=== PATIENT | female | born 1990 | race Caucasian/White ===

== ENCOUNTER → 2016-06-25 | Outpatient (CLI) | payer OTHER ==
[~2016-06-25] MED LIST: ALEVE220 MG PO; AMOXICILLIN500 MG PO; BACTRIM DS 8001 TA1 PO; BIRTH CONTROL1 EAC1 PO; CYCLOBENZAPRINE10 MG PO; KEFLEX500 MG PO; MEDROL DOSEPAK4 MG PO; MOTRIN800 MG PO; NAPROSYN500 MG PO; NEXIUM40 MG PO; NKHM; PREDNICOT20 MG PO; VICODIN 5/500 505 MG PO; ZITHROMAX Z PA250 MG PO
== END | disposition home or self-care (01) ==
LOC: RESCLI 02:57
DX: M25.561 Pain in right knee (principal); K21.9 Gastro-esophageal reflux disease without esophagitis

== ENCOUNTER → 2016-09-17 | Outpatient (CLI) | payer BC | END | disposition home or self-care (01) | LOC: RESCLI 02:48 | DX: K21.9 Gastro-esophageal reflux disease without esophagitis (principal); E66.9 Obesity, unspecified; M25.561 Pain in right knee ==

== ENCOUNTER → 2016-09-24 | Outpatient (CLI) | payer BC | END | disposition home or self-care (01) | LOC: RESCLI 08:43 | DX: M54.41 Lumbago with sciatica, right side (principal); E66.9 Obesity, unspecified; K21.9 Gastro-esophageal reflux disease without esophagitis; Z90.49 Acquired absence of other specified parts of digestive tract ==

== ENCOUNTER → 2016-10-23 | Outpatient (CLI) | payer BC | END | disposition home or self-care (01) | LOC: MRI 00:27 | DX: M54.5 Low back pain (principal) ==

== ENCOUNTER → 2017-03-27 | Outpatient (CLI) | payer OTHER ==
[2017-03-27 08:05] LABS: BASO % 0.4 % (0.0-1.0); EOS # 0.1 10*3/uL (0.0-0.4); EOS % 1.3 % (1.0-4.0); HEMATOCRIT 34.1 % (37.0-47.0); LYMPH # 2.4 10*3/uL (1.3-4.4); LYMPH % 33.6 % (27.0-41.0); MEAN CELL VOLUME 85.5 fl (81.0-99.0); MEAN CORPUSCULAR HGB 27.6 pg (27.0-31.0); MEAN CORPUSCULAR HGB CONC 32.3 g/dl (33.0-37.0); MEAN PLATELET VOLUME 9.2 fl (9.6-12.3); MONO # 0.4 10*3/uL (0.1-1.0); MONO % 5.2 % (3.0-9.0); NEUT # 4.2 10*3/uL (2.3-7.9); NEUT % 59.1 % (47.0-73.0); PLATELET COUNT AUTOMATED 336 10*3/uL (130-400); RED BLOOD COUNT 3.99 10*6/uL (4.10-5.10); RED CELL DISTRI WIDTH 13.5 % (0-14.5); WHITE BLOOD COUNT 7.1 10*3/uL (4.8-10.8)
[2017-03-27 08:33] LABS: BUN 14 mg/dl (7-24); CHLORIDE 104 mmol/L (98-107); CHOLESTEROL 192 mg/dL (<200); CREATININE 0.72 mg/dL (0.55-1.02); HDL CHOLESTEROL 64 mg/dl (40-60); LDL CHOLESTEROL 106 mg/dL (9-159); POTASSIUM 4.1 mmol/L (3.5-5.1); SODIUM 137 mmol/L (136-145); TRIGLYCERIDES 110 mg/dl (<150); VLDL CHOLESTEROL 22 mg/dL (6-40)
== END | disposition home or self-care (01) ==
LOC: LAB 00:43
PROVIDERS: Internal Medicine
DX: Z00.01 Encounter for general adult medical examination with abnormal findings (principal); E78.00 Pure hypercholesterolemia, unspecified; R73.09 Other abnormal glucose

== ENCOUNTER → 2017-04-28 | Outpatient (CLI) | payer OTHER | END | disposition home or self-care (01) | LOC: RESCLI 01:56 | DX: K21.9 Gastro-esophageal reflux disease without esophagitis (principal); E66.9 Obesity, unspecified; R73.03 Prediabetes; M51.26 Other intervertebral disc displacement, lumbar region ==

== ENCOUNTER → 2017-07-22 | Outpatient (CLI) | payer OTHER | END | disposition home or self-care (01) | LOC: RESCLI 04:43 | DX: K21.9 Gastro-esophageal reflux disease without esophagitis (principal); E66.9 Obesity, unspecified; R73.03 Prediabetes; M51.26 Other intervertebral disc displacement, lumbar region; M54.2 Cervicalgia ==

== ENCOUNTER → 2021-08-10 | Outpatient (CLI) | payer OTHER ==
[2021-08-10 09:27] LABS: BASO # 0.1 10*3/uL (0.0-0.1); BASO % 0.7 % (0.0-1.0); EOS # 0.3 10*3/uL (0.0-0.4); EOS % 3.7 % (1.0-4.0); HEMATOCRIT 32.9 % (37.0-47.0); LYMPH # 1.8 10*3/uL (1.3-4.4); LYMPH % 25.7 % (27.0-41.0); MEAN CELL VOLUME 72.9 fl (81.0-99.0); MEAN CORPUSCULAR HGB 22.2 pg (27.0-31.0); MEAN CORPUSCULAR HGB CONC 30.4 g/dl (33.0-37.0); MEAN PLATELET VOLUME 8.6 fl (9.6-12.3); MONO # 0.4 10*3/uL (0.1-1.0); MONO % 5.4 % (3.0-9.0); NEUT # 4.6 10*3/uL (2.3-7.9); NEUT % 64.2 % (47.0-73.0); PLATELET COUNT AUTOMATED 436 10*3/uL (130-400); RED BLOOD COUNT 4.51 10*6/uL (4.10-5.10); RED CELL DISTRI WIDTH 16.3 % (0-14.5); WHITE BLOOD COUNT 7.1 10*3/uL (4.8-10.8)
[2021-08-10 09:44] LABS: ALKALINE PHOSPHATASE 106 U/L (45-117); BUN 14 mg/dl (7-24); CHLORIDE 108 mmol/L (98-107); CHOLESTEROL 167 mg/dL (<200); CREATININE 0.91 mg/dL (0.55-1.02); FREE T4 1.12 ng/dl (0.76-1.46); LDL CHOLESTEROL 88 mg/dL (9-159); POTASSIUM 3.8 mmol/L (3.5-5.1); SGOT/AST 25 IU/L (3-35); SGPT/ALT 62 U/L (12-78); SODIUM 138 mmol/L (136-145); TOTAL PROTEIN 7.8 gm/dL (6.4-8.2); TRIGLYCERIDES 97 mg/dl (<150)
[2021-08-10 10:06] LABS: VITAMIN D, 25-HYDROXY 18.1 ng/mL (30-100)
[2021-08-15 13:07] LABS: ALTERNARIA ALTERNATA, IGE <0.10 kU/L (Class 0); AMERICAN ELM, IGE <0.10 kU/L (Class 0); ASPERGILLUS FUMIGATU, IGE <0.10 kU/L (Class 0); BERMUDA GRASS, IGE <0.10 kU/L (Class 0); BIRCH, COMMON SILVER IGE <0.10 kU/L (Class 0); CLADOSPORIUM HERBARU, IGE <0.10 kU/L (Class 0); CORN, IGE <0.10 kU/L (Class 0); D FARINAE MITE <0.10 kU/L (Class 0); D PTERONYSSINUS <0.10 kU/L (Class 0); DOG DANDER, IGE <0.10 kU/L (Class 0); IMMUNOGLOBULIN IgE 67 IU/mL (6-495); MAPLE LEAF SYCAMORE, IGE <0.10 kU/L (Class 0); MAPLE/BOX ELDER, IGE <0.10 kU/L (Class 0); MILK (COW), IGE <0.10 kU/L (Class 0); MOUSE URINE IGE <0.10 kU/L (Class 0); PEANUT, IGE <0.10 kU/L (Class 0); PENICILLIUM CHRYSOGENUM, IGE <0.10 kU/L (Class 0); ROUGH PIGWEED, IGE <0.10 kU/L (Class 0); SHEEP SORREL (DOCK), IGE <0.10 kU/L (Class 0); SHORT RAGWEED, IGE <0.10 kU/L (Class 0); SOYBEAN, IGE <0.10 kU/L (Class 0); TIMOTHY, IGE <0.10 kU/L (Class 0); WALNUT TREE, IGE <0.10 kU/L (Class 0); WHEAT, IGE <0.10 kU/L (Class 0); WHITE ASH, IGE <0.10 kU/L (Class 0); WHITE MULBERRY, IGE <0.10 kU/L (Class 0); WHITE OAK, IGE <0.10 kU/L (Class 0)
== END | disposition home or self-care (01) ==
LOC: LAB 09:04
PROVIDERS: ATTEND Family Medicine
DX: Z00.00 Encounter for general adult medical examination without abnormal findings (principal); R53.83 Other fatigue; C81.70 Other Hodgkin lymphoma, unspecified site; E55.9 Vitamin D deficiency, unspecified; J31.2 Chronic pharyngitis

== ENCOUNTER → 2022-02-06 | Outpatient (CLI) | payer OTHER ==
[2022-02-06 09:38] LABS: HEMATOCRIT 35.1 % (37.0-47.0); MEAN CELL VOLUME 81.6 fl (81.0-99.0); MEAN CORPUSCULAR HGB 25.1 pg (27.0-31.0); MEAN CORPUSCULAR HGB CONC 30.8 g/dl (33.0-37.0); MEAN PLATELET VOLUME 9.2 fl (9.6-12.3); RED BLOOD COUNT 4.3 10*6/uL (4.10-5.10); RED CELL DISTRI WIDTH 18.6 % (0-14.5); WHITE BLOOD COUNT 7.6 10*3/uL (4.8-10.8)
[2022-02-06 09:57] LABS: CHLORIDE 105 mmol/L (98-107); POTASSIUM 4.3 mmol/L (3.5-5.1); SODIUM 140 mmol/L (136-145)
[2022-02-06 10:02] LABS: ALKALINE PHOSPHATASE 108 U/L (45-117); BUN 14 mg/dl (7-24); CHOLESTEROL 206 mg/dL (<200); CREATININE 0.79 mg/dL (0.55-1.02); LDL CHOLESTEROL 104 mg/dL (9-159); SGOT/AST 5 IU/L (3-35); SGPT/ALT 20 U/L (12-78); TOTAL PROTEIN 7.1 gm/dL (6.4-8.2); TRIGLYCERIDES 116 mg/dl (<150)
== END | disposition home or self-care (01) ==
LOC: LAB 09:01
PROVIDERS: ATTEND Family Medicine
DX: E55.9 Vitamin D deficiency, unspecified (principal); D64.9 Anemia, unspecified

== ENCOUNTER → 2022-03-01 | Outpatient (CLI) | payer OTHER | END | disposition home or self-care (01) | LOC: CT 02:18 | PROVIDERS: ATTEND Internal Medicine Hematology & Oncology | DX: C81.90 Hodgkin lymphoma, unspecified, unspecified site (principal) ==

== ENCOUNTER → 2022-08-14 | Outpatient (CLI) | payer OTHER | END | disposition home or self-care (01) | LOC: CT 08-07 09:00 | PROVIDERS: ATTEND Internal Medicine Hematology & Oncology | DX: C81.90 Hodgkin lymphoma, unspecified, unspecified site (principal); N88.8 Other specified noninflammatory disorders of cervix uteri ==

== ENCOUNTER → 2022-08-27 | Outpatient (CLI) | payer OTHER | END | disposition home or self-care (01) | LOC: US 01:12 | PROVIDERS: ATTEND Nurse Practitioner Women's Health | DX: N88.8 Other specified noninflammatory disorders of cervix uteri (principal); R10.2 Pelvic and perineal pain; R93.89 Abnormal findings on diagnostic imaging of other specified body structures ==

== ENCOUNTER → 2022-09-06 | Outpatient (CLI) | payer OTHER | END | disposition home or self-care (01) | LOC: US 00:29 | PROVIDERS: ATTEND Nurse Practitioner Women's Health | DX: D25.9 Leiomyoma of uterus, unspecified (principal); N88.8 Other specified noninflammatory disorders of cervix uteri; R93.89 Abnormal findings on diagnostic imaging of other specified body structures ==

== ENCOUNTER → 2023-03-07 | Outpatient (CLI) | payer OTHER ==
[2023-03-07 10:06] LABS: HEMATOCRIT 41.2 % (37.0-47.0); MEAN CELL VOLUME 90.7 fl (81.0-99.0); MEAN CORPUSCULAR HGB 30.4 pg (27.0-31.0); MEAN CORPUSCULAR HGB CONC 33.5 g/dl (33.0-37.0); MEAN PLATELET VOLUME 8.6 fl (9.6-12.3); RED BLOOD COUNT 4.54 10*6/uL (4.10-5.10); RED CELL DISTRI WIDTH 12.8 % (0-14.5); WHITE BLOOD COUNT 7.7 10*3/uL (4.8-10.8)
[2023-03-07 10:38] LABS: ALKALINE PHOSPHATASE 106 U/L (46-116); BUN 9 mg/dl (9-23); CHLORIDE 101 mmol/L (98-107); CHOLESTEROL 192 mg/dL (<200); FREE T4 1.25 ng/dl (0.89-1.76); LDL CHOLESTEROL 102 mg/dL (9-159); POTASSIUM 3.7 mmol/L (3.4-5.1); SGPT/ALT 63 U/L (10-49); TOTAL PROTEIN 7.5 gm/dL (6.0-8.0); TRIGLYCERIDES 175 mg/dl (<150)
[2023-03-07 10:48] LABS: VITAMIN D, 25-HYDROXY 55.6 ng/mL (30-100)
== END | disposition home or self-care (01) ==
LOC: LAB 09:43
PROVIDERS: ATTEND Family Medicine
DX: E78.00 Pure hypercholesterolemia, unspecified (principal); E55.9 Vitamin D deficiency, unspecified; R53.83 Other fatigue; Z13.220 Encounter for screening for lipoid disorders; R63.5 Abnormal weight gain

== ENCOUNTER → 2023-08-12 | Outpatient (CLI) | payer OTHER ==
[~2023-08-12] MED LIST changes: +IOHEXOL 300 MG/ML 100 ML VIAL IV ONE
== END | disposition home or self-care (01) ==
LOC: CT 08-05 09:00
PROVIDERS: ATTEND Internal Medicine Hematology & Oncology
DX: C81.90 Hodgkin lymphoma, unspecified, unspecified site (principal); N88.8 Other specified noninflammatory disorders of cervix uteri; Z90.49 Acquired absence of other specified parts of digestive tract

== ENCOUNTER 2023-09-12 12:55 | Emergency (ER) | payer OTHER ==
[~2023-09-12] VITALS: Ht 167.6 cm; Wt 113.4 kg
[~2023-09-12 12:55] MED LIST changes: -IOHEXOL 300 MG/ML 100 ML VIAL IV ONE
[2023-09-12] MEDS ORDERED: OMEPRAZOLE40 MG PO (13:13)
[2023-09-12] MEDS ORDERED: FERROUS GLUCON324 MG PO (13:13)
== END 2023-09-12 14:36 | disposition home or self-care (01) ==
LOC: ED 12:55
DX: S82.61XA Displaced fracture of lateral malleolus of right fibula, initial encounter for closed fracture (principal); W10.9XXA Fall (on) (from) unspecified stairs and steps, initial encounter; Y93.89 Activity, other specified; Y92.009 Unspecified place in unspecified non-institutional (private) residence as the place of occurrence of the external cause; Y99.8 Other external cause status

== ENCOUNTER → 2024-05-10 | Outpatient (CLI) | payer OTHER ==
[~2024-05-10] MED LIST changes: +FERROUS GLUCON324 MG PO; +OMEPRAZOLE40 MG PO
== END | disposition home or self-care (01) ==
LOC: LAB 02:35 → US 02:35
PROVIDERS: ATTEND Nurse Practitioner Women's Health
DX: D25.1 Intramural leiomyoma of uterus (principal); N93.9 Abnormal uterine and vaginal bleeding, unspecified; N83.201 Unspecified ovarian cyst, right side

== ENCOUNTER → 2024-08-11 | Outpatient (CLI) | payer OTHER ==
[~2024-08-11] MED LIST changes: +IOHEXOL 300 MG/ML 100 ML VIAL IV ONE; +IOHEXOL 300 MG/ML 100 ML VIAL ONE; +IOHEXOL 9 MG/ML (IODINE) ORAL SOLUTION PO ONE
== END | disposition home or self-care (01) ==
LOC: CT 07-20 09:00
PROVIDERS: ATTEND Internal Medicine Hematology & Oncology
DX: C81.90 Hodgkin lymphoma, unspecified, unspecified site (principal); Z90.49 Acquired absence of other specified parts of digestive tract

== ENCOUNTER → 2024-10-22 | Outpatient (CLI) | payer OTHER ==
[~2024-10-22] MED LIST changes: -IOHEXOL 300 MG/ML 100 ML VIAL IV ONE; -IOHEXOL 300 MG/ML 100 ML VIAL ONE; -IOHEXOL 9 MG/ML (IODINE) ORAL SOLUTION PO ONE
== END | disposition home or self-care (01) ==
LOC: LAB 09:16
PROVIDERS: ATTEND Nurse Practitioner Women's Health
DX: N92.6 Irregular menstruation, unspecified (principal)